=== PATIENT | female | born 1985 | race Native Hawaiian/Other Pacific Islander ===

== ENCOUNTER 2017-03-31 20:24 | Inpatient (IN) | payer BC, OTHER ==
[~2017-03-31] VITALS: Ht 167.6 cm; Wt 77.1 kg
[~2017-03-31 20:24] MED LIST: ESCI20TA PO; GABA800T PO; HYDR50CA PO; METH-406 PO
--- NOTE | 2017-03-31 22:40 | NUR ---
INTAKE ASSESSMENT PT ASSESSED IN INTAKE DEPT.PT IS A/O X 4.VITAL SIGNS ARE STABLE.B/P=122/78,T=97.6.P=102,R=18.O2 SAT=97%.NO S/S OF ACUTE DISTRESS NOTED.PT IS STABLE CONDITION TO PROCEED TO [facility].
[2017-03-31] MEDS ORDERED: LOPERAMIDE HCL 2 MG CAPSULE PO PRN ×2 (22:45)
[2017-03-31] MEDS ORDERED: CLONIDINE HCL 0.1 MG TABLET PO PRN (22:45)
[2017-03-31] MEDS ORDERED: MIRALAX 17 GM POWD.PACK PO PRN (22:45)
[2017-03-31] MEDS ORDERED: ONDANSETRON 4 MG/2 ML VIAL IM PRN (22:45)
[2017-03-31] MEDS ORDERED: DIAZEPAM 10 MG TABLET PO PRN ×2 (22:45)
[2017-03-31] MEDS ORDERED: ONDANSETRON ODT 4 MG TAB.RAPDIS SL PRN (22:45)
[2017-03-31] MEDS ORDERED: THIAMINE HCL 200 MG/2 ML VIAL IM ONE (22:45)
[2017-03-31] MEDS ORDERED: LORAZEPAM 2 MG/1 ML VIAL IM PRN (22:45)
[2017-03-31] MEDS ORDERED: MAGNESIUM HYDROXIDE 30 ML LIQUID UDC PO PRN (22:45)
[2017-03-31] MEDS ORDERED: DICYCLOMINE HCL 20 MG TABLET PO PRN (22:45)
[2017-03-31] MEDS ORDERED: diphenhydrAMINE 50 MG CAPSULE PO PRN (22:45)
[2017-03-31] MEDS ORDERED: DIAZEPAM 5 MG TABLET PO PRN (22:45)
[2017-03-31] MEDS ORDERED: ACETAMINOPHEN 325 MG TABLET PO PRN (22:45)
[2017-03-31 23:27] LABS: *URINE HCG, QUAL NEGATIVE (NEGATIVE)
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
[2017-03-31 23:32] LABS: *AMPHETAMINE, URINE NEGATIVE (NEGATIVE); *BARBITURATE, URINE NEGATIVE (NEGATIVE); *CANNABINOID, URINE NEGATIVE (NEGATIVE); *COCCAINE, URINE NEGATIVE (NEGATIVE); *OPIATE, URINE NEGATIVE (NEGATIVE); *PHENCYCLIDINE SCREEN,URINE NEGATIVE (NEGATIVE)
[2017-04-01] VITALS: BP 123/88
[2017-04-01] MEDS ORDERED: KETOROLAC TROMETHAMINE 30 MG INJ IM PRN (00:15)
[2017-04-01] MEDS ORDERED: diphenhydrAMINE 50 MG CAPSULE ONE (00:30)
[2017-04-01] MEDS ORDERED: KETOROLAC TROMETHAMINE 30 MG INJ ONE (00:30)
[2017-04-01] MEDS ORDERED: NICOTINE 14 MG/24HR PATCH TD ONE (00:30)
[2017-04-01] MEDS ORDERED: MAG HYDROX/AL HYDROX/SIMETH 30 ML LIQUID UDC ONE (00:31)
[2017-04-01] MEDS: MAG HYDROX/AL HYDROX/SIMETH 30 ML LIQUID UDC PO PRN ×2 (00:31→18:01)
[2017-04-01] MEDS: NICOTINE 14 MG/24HR PATCH TD SCH ×2 (00:32→08:10)
--- NOTE | 2017-04-01 00:35 | NUR ---
PRN MEDS PRN BENADRYL,MAALOX AND TORADOL INJECTION GIVEN ORDERED FOR C/O ITICHING/INSOMNIA,HEARTBURN AND LEFT HIP PAIN RESPECTIVELY.PAIN LEVEL IS 9/10.
--- NOTE | 2017-04-01 01:35 | NUR ---
PRN F/U Pt is peacefully sleeping in bed at this;breathing is even and non labored,no s/s of distress noted,unable to assess pain level at this time,will be monitored.
[2017-04-01 04:00] VITALS: BP 116/77
[2017-04-01] MEDS ORDERED: GABA-536 PO (05:09)
[2017-04-01] MEDS ORDERED: LORA-258 PO (05:11)
--- NOTE | 2017-04-01 06:46 | NUR ---
END OF SHIFT Pt slept 5 hrs last night,fluid intake was 850 mls,voided x 1.PRN meds Benadryl,Toradol injection and Maalox were given with good effect.Nicotine patch applied to right upper arm.Pt does not smoke,She vapes. All Safety measures in place. Call light kept within reach. Will continue to monitor.
--- NOTE | 2017-04-01 07:10 | NUR ---
Start of shift note; Received report from night nurse. Patient is AOX4. Patient is a 31 year old female admitted on 03/31/17 for ETOH/Benzo dependence. Patient is on a regular diet, full code status, NKA. Patient reported history of anxiety, depression, SI history, eating disorder, seizures d/t withdrawals. Patient appears very anxious and agitated, complaining of sweating, nausea/vomiting, nose bleed, muscle aches. Patient has redness on face and nose. Patient currently denies suicidal/homicidal ideation. Patient is on fall and seizure precaution. Bed in lowest position, call light within reach. Will continue to monitor patient.
--- NOTE | 2017-04-01 07:42 | NUR ---
PRN medication; Relaxation techniques reinforced. Non-pharmacological techniques noted to be ineffective. Patient still appears anxious, agitated, complaining of nausea and vomiting, hand tremors noted. Patient's current CIWA score is 13. PRN Valium 10mg PO given as per MD for CIWA of 13. Will closely monitor patient.
[2017-04-01 07:52] LABS: BASOPHILS # (AUTO) 0.1 K/uL (0.0-8.0); BASOPHILS % (AUTO) 1.1 % (0.0-2.0); EOSINOPHILS # (AUTO) 0.2 K/uL (0.0-0.7); EOSINOPHILS % (AUTO) 2.4 % (0.0-7.0); LYMPHOCYTES # (AUTO) 5.9 K/UL (0.8-4.8); LYMPHOCYTES % (AUTO) 62.2 % (20.5-51.5); MEAN CORPUSCULAR HEMOGLOBIN 29.7 UUG (27.0-31.0); MEAN CORPUSCULAR HGB CONC 33 g/dL (32.0-37.0); MEAN CORPUSCULAR VOLUME 89.2 FL (81.0-99.0); MONOCYTES # (AUTO) 0.6 K/UL (0.1-1.30); MONOCYTES % (AUTO) 6.3 % (0.0-11.0); NEUTROPHILS # (AUTO) 2.6 K/UL (1.8-8.9); PLATELET COUNT (AUTO) 277 K/UL (150-450); RED BLOOD CELL COUNT(AUTO) 4.71 MIL/UL (4.2-5.4); WHITE BLOOD COUNT (AUTO) 9.4 K/UL (4.0-11.2)
[2017-04-01 08:00] VITALS: BP 123/98
[2017-04-01] MEDS: MULTIVITAMINS,THERAPEUTIC TABLET PO SCH (08:10)
[2017-04-01] MEDS: THIAMINE HCL 100 MG TABLET PO SCH (08:10)
[2017-04-01] MEDS: FOLIC ACID 1 MG TABLET PO SCH (08:10)
--- NOTE | 2017-04-01 08:42 | NUR ---
Re-assessment; Patient is AOX4, patient stated improvement of nausea and no further emesis noted at this time, patient appears calm and comfortable at this time. Patient's current CIWA score is 8. Will continue to monitor patient.
[2017-04-01 08:57] LABS: BILIRUBIN,TOTAL 1.1 mg/dL (0.2-1.0); MAGNESIUM 1.9 mg/dL (1.8-2.4); POTASSIUM 3.7 mmol/L (3.5-5.1); TOTAL PROTEIN, SERUM 8.3 g/dL (6.4-8.2)
[2017-04-01] MEDS ORDERED: TUBERCULIN,PURIF.PROT.DERIV. 5 TU/0.1 ML TEST ID ONE (09:00)
--- NOTE | 2017-04-01 09:46 | NUR ---
MD communication; Patient stated that she wanted to leave AMA. Redirected patient and attempted patient to convince patient to comply with treatment plan. Dr. Cordon notified and made aware of patient's current condition. Patient currently denies suicidal/homicidal ideations. Patient to be evaluated by MD. Will closely monitor patient.
[2017-04-01] MEDS ORDERED: DIAZEPAM 10 MG TABLET PO PRN (10:00)
--- NOTE | 2017-04-01 10:10 | NUR ---
MD communication; MD on unit. Patient was seen and evaluated by Dr. Cordon. MD ordered one time dose of Valium 10mg for elevated CIWA and anxiety. Patient received PRN Valium at 0742 and was reported to MD. Clarified one time order with MD, per MD its okay to give one time dose of Valium at this time.
--- NOTE | 2017-04-01 10:15 | NUR ---
New order; MD ordered one time dose of Valium 10mg PO for elevated CIWA score and anxiety/agitation. Upon assessment patient's current CIWA score is 9 manifested by Anxiety, agitation, intermittent nausea, mild hand tremors, sweating. Order given as per ordered. Will continue to monitor patient for effectiveness of medication. Addendum: 04/01/17 at 1036 by MATA OBRIEN LVN MD also notified of patient's home medications and the need to reconcile home medications, psychiatrist was also notified.
[2017-04-01 10:39] LABS: THYROID STIMULATING HORMONE 4.018 mIU/mL (0.358-3.740)
--- NOTE | 2017-04-01 11:15 | NUR ---
Re-assessment; Patient is AOX4. Patient appears less anxious and less agitated, complaining of mild nausea and sweats, mild tremors noted with current CIWA score of 7. Medication was effective in reducing withdrawal symptoms. Will continue to monitor patient.
--- NOTE | 2017-04-01 11:18 | NUR ---
Med Reconciliation Pt requesting her medications be reconciled by Dr Bradford, Dr Bradford notified, gave ok for pt to continue: Paxil 20mg PO daily, gabapentin 1200mg PO TID for anxiety. Orders entered, unable to enter orders.
[2017-04-01] MEDS: ESCITALOPRAM OXALATE 10 MG TABLET PO SCH (11:29)
[2017-04-01 12:00] VITALS: BP 125/88
[2017-04-01] MEDS: HYDROXYZINE PAMOATE 25 MG CAPSULE PO PRN ×2 (12:04→22:05)
[2017-04-01] MEDS: METHOCARBAMOL 750 MG TABLET PO PRN ×2 (12:04→22:04)
--- NOTE | 2017-04-01 12:04 | NUR ---
PRN medication; Patient is complaining of muscle aches and anxiety m/b patient pacing back and forth in the hallway and facial grimacing, redirected as needed. Relaxation techniques ineffective. PRN Vistaril 50mg PO given for anxiety and PRN Robaxin 750mg PO given for muscle aches. Will continue to monitor patient.
[2017-04-01] MEDS ORDERED: GABAPENTIN 400 MG CAPSULE PO SCH (13:00)
[2017-04-01] MEDS: DIAZEPAM 10 MG TABLET PO SCH ×3 (13:00→21:00)
[2017-04-01] MEDS: FLUTICASONE PROP NASAL SPRAY 16 GM BOTTLE NS SCH ×2 (13:00→17:35)
--- NOTE | 2017-04-01 13:04 | NUR ---
Re-assessment; Patient stated improvement in muscle aches, patient appears less anxious. Medications were effective in reducing withdrawal symptoms.
--- NOTE | 2017-04-01 13:46 | NUR ---
Patient and MD communication; Patient refused to take Valium taper dose at this time, educated patient regarding the importance of compliance to treatment plan and medication regime. Dr. Cordon on unit. MD notified of patient's refusal to medication, MD to re-evaluate patient. Patient has small lip sore was also reported to MD, no new orders at this time.
[2017-04-01] MEDS: GABAPENTIN 400 MG CAPSULE PO SCH ×2 (14:08→21:13)
--- NOTE | 2017-04-01 15:21 | NUR ---
Therapist advised client of group times. Client will not be going because she is highly anxious and does not feel well.
[2017-04-01 16:00] VITALS: BP 138/82
[2017-04-01] MEDS: NICOTINE POLACRILEX 4 MG GUM-PK OF TEN BC PRN (16:03)
--- NOTE | 2017-04-01 18:08 | NUR ---
PRN medication and patient communication; Patient is complaining of heartburn, PRN Maalox 30ml PO given for heartburn. Patient also refused her 1700 Valium dose. Educated patient regarding the importance regarding importance of compliance to treatment plan and medication regime, verbalized understanding.
--- NOTE | 2017-04-01 18:36 | NUR ---
End of shift note; Patient is AOX4. Patient was not compliant with treatment plan, patient was educated regarding the importance of compliance to treatment plan and medication regime, verbalized understanding. Patient's last CIWA score was 5 at 1600. All safety measures secured. Met all needs.
--- NOTE | 2017-04-01 19:30 | NUR ---
START OF SHIFT Patient is a 31 year old female admitted on 03/31/17 for ETOH/Benzo dependence. Patient is on a regular diet, full code status, NKA. A/O X 4. PMH of anxiety, depression, Suicide attempts, eating disorder, seizures d/t withdrawals. Patient currently denies suicidal ideation. Patient is on fall and seizure precautions. All safety measures in place. Bed locked in lowest position,side rails up and padded x 2, call light within reach. Will continue to monitor. Addendum: 04/01/17 at 2032 by ZAID GORDON RN LAST CIWA SCORE WAS 5.
[2017-04-01 20:00] VITALS: BP 126/90
[2017-04-01] MEDS ORDERED: QUETIAPINE FUMARATE 25 MG TABLET PO SCH (21:00)
--- NOTE | 2017-04-01 21:30 | NUR ---
PT REFUSED TO TAKE VALIUM ORDERED.
[2017-04-01] MEDS: IBUPROFEN 400 MG TABLET PO PRN (22:04)
--- NOTE | 2017-04-01 22:05 | NUR ---
PRN MEDS- PRN VISTARIL,MOTRIN AND ROBAXIN GIVEN ORDERED FOR C/O ANXIETY,HEADACHE AND MYALGIA RESPECTIVELY.WILL MONITOR FOR EFFECTIVENESS.
--- NOTE | 2017-04-01 23:05 | NUR ---
PRN F/U PT VERBALIZES FEELING BETTER.ANXIETY AND PAIN RELIEVED
[2017-04-02] VITALS: BP 115/74
[2017-04-02] MEDS: IBUPROFEN 400 MG TABLET PO PRN (02:43)
--- NOTE | 2017-04-02 02:44 | NUR ---
PT C/O PAIN IN HER MOUTH DUE TO MOUTH SORE.PRN MOTRIN GIVEN ORDERED PER PT REQUEST.PAIN LEVEL IS 5/10.WILL MONITOR.
--- NOTE | 2017-04-02 03:45 | NUR ---
PRN F/U PRN EFFECTIVE,PT RESTING IN BED WITH EYES CLOSED,NO S/S OF DISTRESS NOTED.
[2017-04-02 04:00] VITALS: BP 126/80
--- NOTE | 2017-04-02 06:48 | NUR ---
END OF SHIFT Patient is a 31 year old female admitted on 03/31/17 for ETOH/Benzo dependence. Patient is on a regular diet, full code status, NKA. A/O X 4. PMH of anxiety, depression, Suicide attempts, eating disorder, seizures d/t withdrawals. Patient currently denies suicidal ideation. Patient is on fall and seizure precautions. PRN Vistaril,Motrin and Robaxin given and were effective.Pt slept 8 hrs;fluid intake was 2,937 mls,voide x 4,BM X 1. All safety measures in place. Bed locked in lowest position,side rails up and padded x 2, call light within reach. Will continue to monitor.
[2017-04-02 08:00] VITALS: BP 114/71
[2017-04-02 08:08] LABS: HEPATITIS B SURFACE AG Negative (Negative)
[2017-04-02] MEDS ORDERED: DIAZEPAM 10 MG TABLET PO SCH (09:00)
[2017-04-02] MEDS: FOLIC ACID 1 MG TABLET PO SCH (09:06)
[2017-04-02] MEDS: GABAPENTIN 400 MG CAPSULE PO SCH ×3 (09:06→21:03)
[2017-04-02] MEDS: ESCITALOPRAM OXALATE 10 MG TABLET PO SCH (09:06)
[2017-04-02] MEDS: HYDROXYZINE PAMOATE 25 MG CAPSULE PO PRN ×2 (09:07→15:43)
[2017-04-02] MEDS: MULTIVITAMINS,THERAPEUTIC TABLET PO SCH (09:07)
[2017-04-02] MEDS: METHOCARBAMOL 750 MG TABLET PO PRN ×2 (09:07→17:18)
--- NOTE | 2017-04-02 09:07 | NUR ---
PRN ROBAXIN AND VISTARIL Patient complained of body pain and sore on lower lip (5/10) and anxiety. PRN robaxin and vistaril given. Will monitor effectiveness of medications.
[2017-04-02] MEDS: THIAMINE HCL 100 MG TABLET PO SCH (09:08)
[2017-04-02] MEDS: FLUTICASONE PROP NASAL SPRAY 16 GM BOTTLE NS SCH ×2 (09:08→17:18)
[2017-04-02] MEDS: NICOTINE 14 MG/24HR PATCH TD SCH (09:08)
--- NOTE | 2017-04-02 10:00 | NUR ---
START OF SHIFT Received report from night nurse nurse. Patient is 31 year old female admitted for medically supervised withdrawal from alcohol and benzodiazepines. Patient is full code with NKA. On assessment this AM: CIWA: 2. Denies SOB, chest pain. vitals signs WNL. Reports mild anxiety and mild tremors. On valium taper this AM but refused scheduled valium, pt. wants to talk to the MD today and states she wants to go home. Patient was encouraged to attend group meetings today. Will continue to monitor patient. Will follow up with MD regarding patient's refusal to take her scheduled valium.
--- NOTE | 2017-04-02 10:05 | NUR ---
REASSESSMENT (PRN ROBAXIN AND VISTARIL) Patient reports vistaril was effective. Patient reports pain decreased to 4/10.
[2017-04-02 12:00] VITALS: BP 109/77
[2017-04-02] MEDS ORDERED: DIAZEPAM 5 MG TABLET PO PRN (13:45)
[2017-04-02] MEDS ORDERED: DIAZEPAM 10 MG TABLET PO PRN ×2 (13:45)
--- NOTE | 2017-04-02 14:00 | NUR ---
CIWA EVALUATION Patient's last CIWA was 2. No PRN valium given at this time.
[2017-04-02] MEDS: NICOTINE POLACRILEX 4 MG GUM-PK OF TEN BC PRN (14:16)
--- NOTE | 2017-04-02 14:16 | NUR ---
PRN NICOTINE GUM Patient requested for prn nicotine gum for craving. Will monitor effectiveness of med.
--- NOTE | 2017-04-02 15:16 | NUR ---
REASSESSMENT PRN NICOTINE GUM Patient reports med was effective
[2017-04-02] MEDS: LIDOCAINE VISCUS 2% 15 ML UDC MM SCH ×2 (15:32→21:03)
--- NOTE | 2017-04-02 15:43 | NUR ---
PRN VISTARIL Patient complained of anxiety, prn vistaril given. will monitor effectiveness of med.
[2017-04-02 16:00] VITALS: BP 121/85
--- NOTE | 2017-04-02 16:00 | NUR ---
CIWA EVALUATION Patient's last CIWA was 2. No PRN valium given at this time.
--- NOTE | 2017-04-02 16:43 | NUR ---
REASSESSMENT (PRN VISTARIL) Patient reports resolved anxiety.
[2017-04-02] MEDS: NYSTATIN SUSPENSION 5 ML LIQUID UDC PO SCH (17:18)
--- NOTE | 2017-04-02 17:18 | NUR ---
PRN ROBAXIN Patient reproted body aches 01/20, prn robaxin given, will continue to monitor effectiveness.
--- NOTE | 2017-04-02 18:18 | NUR ---
REASSESSMENT (PRN ROBAXIN) Patient reports pain decreased to 2/10.
--- NOTE | 2017-04-02 19:00 | NUR ---
END OF SHIFT Patient is 31 year old female admitted for medically supervised withdrawal from alcohol and benzodiazepines. Patient is full code with NKA. Most recent CIWA: 2. Patient reports prn vistaril and robaxin help with the anxiety and body aches. Patient has mouth sore on lower lip and reports she has sores on the side of her tongue, Md notified. Patient received nystatin and lidocaine swish and spit as ordered. Patient tolerating meals without n/v. dealer support technicianproduction shift supervisor will continue to monitor patient. dealer support technicianproduction shift supervisor will continue to monitor patient.
[2017-04-02 20:00] VITALS: BP 116/82
--- NOTE | 2017-04-02 20:00 | NUR ---
Start of Shift Patient is a 31 year old, female, admitted for ETOH and Benzo dependence. With MHx of Anxiety, Depression, suicide attempts, eating disorder, seizures d/t withdrawals. Patient is Full Code, on Regular Diet, and with NKA. Patient currently denies suicidal ideation nor homicidal ideation. ON PRN Valium. Pt is AAOx4, no SOB nor anxiety noted at this time. Pt is ambulatory with steady gait and intact skin. Fall, universal, seizures and safety prec in place. Call light within reach. Latest CIWA=3. Will continue to monitor.
[2017-04-02] MEDS ORDERED: QUETIAPINE FUMARATE 25 MG TABLET PO SCH (21:00)
[2017-04-03] VITALS: BP 113/75
[2017-04-03] MEDS: HYDROXYZINE PAMOATE 25 MG CAPSULE PO PRN ×3 (00:43→14:18)
[2017-04-03] MEDS: NYSTATIN SUSPENSION 5 ML LIQUID UDC PO SCH ×3 (00:43→12:20)
--- NOTE | 2017-04-03 00:44 | NUR ---
RN note PRN Vistaril Pt c/o anxiety. Administered Vistaril 50 mg PO as ordered. Will reassess.
--- NOTE | 2017-04-03 01:45 | NUR ---
RN note reassess Pt asleep on bed, no SOB nor facial grimacing noted.
[2017-04-03 04:00] VITALS: BP 118/76
[2017-04-03] MEDS: LIDOCAINE VISCUS 2% 15 ML UDC MM SCH ×2 (06:31→14:00)
--- NOTE | 2017-04-03 06:34 | NUR ---
RN note PRN Vistaril Pt c/o anxiety. Administered Vistaril 50 mg PO as ordered. Will reassess.
--- NOTE | 2017-04-03 07:15 | NUR ---
End of Shift Patient is a 31 year old, female, admitted for ETOH and Benzo dependence. With MHx of Anxiety, Depression, suicide attempts, eating disorder, seizures d/t withdrawals. Patient is Full Code, on Regular Diet, and with NKA. Patient currently denies suicidal ideation nor homicidal ideation. ON PRN Valium. Pt is AAOx4, no SOB nor anxiety noted at this time. Pt is ambulatory with steady gait and intact skin. Fall, universal, seizures and safety prec in place. Call light within reach. Latest CIWA=2, slept for 7 hours. Endorsed to AM shift nurse for continuity of care.
--- NOTE | 2017-04-03 07:29 | NUR ---
RN note reassess Pt asleep on bed, no SOB nor facial grimacing noted.
[2017-04-03 08:00] VITALS: BP 113/77
--- NOTE | 2017-04-03 08:00 | NUR ---
START OF SHIFT Pt 31 y/o female admitted for etoh/ benzo dependence. Pt received in room awake in bed. Pt alert and oriented to name, place, and time. Perrla. Skin warm and dry to touch. Respirations even and unlabored. It was reported that pt slept for 7 hours last night. Bed on lowest position with side rails x2 up for safety. Call light within reach. No distress noted at this time.
[2017-04-03] MEDS ORDERED: DIAZEPAM 5 MG TABLET PO SCH (09:00)
[2017-04-03] MEDS: METHOCARBAMOL 750 MG TABLET PO PRN (09:21)
[2017-04-03] MEDS: NICOTINE 14 MG/24HR PATCH TD SCH (09:22)
[2017-04-03] MEDS: GABAPENTIN 400 MG CAPSULE PO SCH ×2 (09:22→14:17)
[2017-04-03] MEDS: ESCITALOPRAM OXALATE 10 MG TABLET PO SCH (09:22)
[2017-04-03] MEDS: MULTIVITAMINS,THERAPEUTIC TABLET PO SCH (09:22)
[2017-04-03] MEDS: FOLIC ACID 1 MG TABLET PO SCH (09:22)
[2017-04-03] MEDS: THIAMINE HCL 100 MG TABLET PO SCH (09:22)
[2017-04-03] MEDS: FLUTICASONE PROP NASAL SPRAY 16 GM BOTTLE NS SCH (09:23)
[2017-04-03 12:00] VITALS: BP 122/88
[2017-04-03 14:25] LABS: *AMPHETAMINE, URINE NEGATIVE (NEGATIVE); *BARBITURATE, URINE NEGATIVE (NEGATIVE); *CANNABINOID, URINE NEGATIVE (NEGATIVE); *COCCAINE, URINE NEGATIVE (NEGATIVE); *OPIATE, URINE NEGATIVE (NEGATIVE); *PHENCYCLIDINE SCREEN,URINE NEGATIVE (NEGATIVE)
--- NOTE | 2017-04-03 14:25 | NUR ---
PRN Pt states feels anxious. Vistaril po prn per MD order given and tolerated well.
--- NOTE | 2017-04-03 14:52 | NUR ---
AMA Pt 31 y/o female AMA. Pt spoke with multiple staff and pt still decided to AMA. Dr. Cordon aware. Pt alert and oriented to name, place, and time. Respirations even and unlabored. Pt denies any SI/ HI. Pt home medications, belongings, and resource paper were packed in bag. VS wnl. No distress noted.
[2017-04-04] MEDS ORDERED: DIAZEPAM 5 MG TABLET PO SCH (09:00)
[2017-04-05] MEDS ORDERED: DIAZEPAM 5 MG TABLET PO SCH (09:00)
== END 2017-04-03 14:52 | disposition left against medical advice (07) | DRG 894 ==
LOC: SRC 21:59
PROVIDERS: ADMIT Internal Medicine; ATTEND Internal Medicine
PROC: HZ2ZZZZ Detoxification Services for Substance Abuse Treatment (ICD-10-PCS; principal; 2017-03-31)
PROC: HZ31ZZZ Individual Counseling for Substance Abuse Treatment, Behavioral (ICD-10-PCS; 2017-04-01)
DX: F10.230 Alcohol dependence with withdrawal, uncomplicated (principal); F13.239 Sedative, hypnotic or anxiolytic dependence with withdrawal, unspecified; Y90.9 Presence of alcohol in blood, level not specified; Z59.0 Homelessness; F41.9 Anxiety disorder, unspecified; E07.81 Sick-euthyroid syndrome; K70.10 Alcoholic hepatitis without ascites; J30.9 Allergic rhinitis, unspecified; F32.9 Major depressive disorder, single episode, unspecified
CPT/HCPCS: 36415; 80307; 83690; 83735; 84443; 84703; 85025; 86580; 86592; 86705; 86803; 87340; 87806; 93005; A4663; G0480; J1885; J3411; J3535; Q0162; Q0163

== ENCOUNTER 2018-10-30 18:43 | Inpatient (IN) | payer OTHER ==
[~2018-10-30] VITALS: Ht 167.6 cm; Wt 65.3 kg
[~2018-10-30 18:43] MED LIST changes: +GABA-536 PO; +LORA-258 PO
--- NOTE | 2018-10-30 23:45 | NUR ---
Pre-Admission Met with a 32 year old female in the intake office. She presents to [facility] for medically supervised withdrawal from ETOH (Vodka/Wine) and prescription Benzodiazepines (Ativan). She is intoxicated at this time. States, I drank a bottle of Vodka today and my last drink was about an hour ago at 11". VSS BP120/79, HR 89, RR 16, T 98.2, and O2 Sat 98% RA. She is nodding off and having a difficult time answering the questions. Pt is aware and agrees the the terms of admission. Pt is a candidate for treatment. Intake to be completed and will complete full assessment on the unit.
[2018-10-31] MEDS ORDERED: diphenhydrAMINE 50 MG CAPSULE PO PRN (00:15)
[2018-10-31] MEDS ORDERED: ONDANSETRON 4 MG/2 ML VIAL IM PRN (00:15)
[2018-10-31] MEDS ORDERED: MAGNESIUM HYDROXIDE 30 ML LIQUID UDC PO PRN (00:15)
[2018-10-31] MEDS ORDERED: CLONIDINE HCL 0.1 MG TABLET PO PRN (00:15)
[2018-10-31] MEDS ORDERED: SRC ALCOHOL WITHDRAWAL ADMITTING PROTOCOL XX PRN (00:15)
[2018-10-31] MEDS ORDERED: LORAZEPAM 2 MG/1 ML VIAL IM PRN (00:15)
[2018-10-31] MEDS ORDERED: THIAMINE HCL 200 MG/2 ML VIAL IM ONE (00:15)
[2018-10-31] MEDS ORDERED: MAG HYDROX/AL HYDROX/SIMETH 30 ML LIQUID UDC PO PRN (00:15)
[2018-10-31] MEDS ORDERED: MIRALAX 17 GM POWD.PACK PO PRN (00:15)
[2018-10-31] MEDS ORDERED: LORAZEPAM 1 MG TABLET PO PRN (00:15)
[2018-10-31] MEDS ORDERED: LOPERAMIDE HCL 2 MG CAPSULE PO PRN ×2 (00:15)
[2018-10-31] MEDS ORDERED: ONDANSETRON ODT 4 MG TAB.RAPDIS SL PRN (00:15)
[2018-10-31] MEDS ORDERED: SRC BENZO WITHDRAWAL ADMITTING PROTOCOL XX PRN (00:15)
[2018-10-31] MEDS ORDERED: ACETAMINOPHEN 325 MG TABLET PO PRN (00:15)
[2018-10-31 00:44] LABS: BASOPHILS % (AUTO) 0.3 % (0.0-2.0); EOSINOPHILS % (AUTO) 1.1 % (0.0-7.0); HEMATOCRIT 39.8 % (31.2-41.9); HEMOGLOBIN 13.9 g/dL (10.9-14.3); LYMPHOCYTES # (AUTO) 2.1 K/uL (20.0-40.0); LYMPHOCYTES % (AUTO) 44.8 % (20.5-51.5); MEAN CORPUSCULAR HEMOGLOBIN 32.7 uug (24.7-32.8); MEAN CORPUSCULAR HGB CONC 35 g/dL (32.3-35.6); MEAN CORPUSCULAR VOLUME 93.5 fL (75.5-95.3); MONOCYTES # (AUTO) 0.3 K/uL (2.0-10.0); MONOCYTES % (AUTO) 6.4 % (0.0-11.0); NEUTROPHILS # (AUTO) 2.2 K/uL (1.8-8.9); NEUTROPHILS % (AUTO) 47.4 % (38.5-71.5); PLATELET COUNT (AUTO) 310 K/uL (179-408); RED BLOOD CELL COUNT(AUTO) 4.25 MIL/uL (3.63-4.92); WHITE BLOOD COUNT (AUTO) 4.6 K/uL (3.8-11.8)
[2018-10-31 01:02] LABS: BILIRUBIN,TOTAL 0.9 mg/dL (0.2-1.0); CREATININE 0.9 mg/dL (0.6-1.3); MAGNESIUM 2.1 mg/dL (1.8-2.4); POTASSIUM 3.7 mmol/L (3.5-5.1); TOTAL PROTEIN, SERUM 8.6 g/dL (6.4-8.2)
[2018-10-31 01:13] LABS: THYROID STIMULATING HORMONE 2.547 mIU/mL (0.358-3.740)
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
[2018-10-31 03:27] LABS: *AMPHETAMINE, URINE NEGATIVE (NEGATIVE); *BARBITURATE, URINE NEGATIVE (NEGATIVE); *CANNABINOID, URINE NEGATIVE (NEGATIVE); *COCCAINE, URINE NEGATIVE (NEGATIVE); *OPIATE, URINE NEGATIVE (NEGATIVE); *PHENCYCLIDINE SCREEN,URINE NEGATIVE (NEGATIVE)
[2018-10-31 03:32] LABS: *URINE HCG, QUAL NEGATIVE (NEGATIVE)
[2018-10-31 04:00] VITALS: BP 109/73
[2018-10-31] MEDS ORDERED: SERT100T PO (05:04)
[2018-10-31] MEDS ORDERED: LEVO25TA9 PO (05:06)
--- NOTE | 2018-10-31 06:44 | NUR ---
End of Shift Endorsing 32 year old female patient admitted to [facility] 10/31/18 for medically supervised withdrawal from ETOH and Benzodiazepines. Pt not currently on a taper, but has PRN Medications available for s/s of withdrawal. Last CIWA 4 @0400. Pt did not receive any PRN medications on mine shifter. Pt resting in bed with eyes closed. Respirations are even and unlabored. Bed low, padded side rails up x 2, and call woodruff in reach. PO intake 500 ml, voided x 1, BM x 0, and slept 4 hours.
--- NOTE | 2018-10-31 07:30 | NUR ---
Start of shift Pt is here for medically supervised withdrawal of ETOH and benzos. Pt on PRN medications for symptoms. At 0400 last CIWA 4. Patient c/o anxiety, nausea, fatigue, fine tremors, difficulty concentrating, anhedonia, flat affect and depressed mood. She is disheveled and malodorous. Room is cluttered with wrappers, empty water bottles, clothes and used linens. Drinks and food spilled on floor, in her bed and on his tray. Encouraged Pt to participate in group therapy sessions today to identify positive coping skills to maintain sobriety. All safety measures in place, bed locked/low position. Pt Full Code and NKA. Will continue to monitor for withdrawal symptoms.
[2018-10-31 08:02] VITALS: BP 122/83
[2018-10-31] MEDS: LORAZEPAM 1 MG TABLET PO PRN ×2 (08:44→12:02)
[2018-10-31] MEDS: IBUPROFEN 600 MG TABLET PO PRN (08:44)
--- NOTE | 2018-10-31 08:47 | NUR ---
PRN Ativan 1 mg PO for CIWA 9. PRN Clonidine 0.1 mg PO for anxiety PRN Ibuprofen 600 mg PO for headache #5/10
--- NOTE | 2018-10-31 08:48 | NUR ---
Verify medical history- Pt reports she has an IUD and does not take control pills. Pt reports she take levothyroxine 50 mcg daily.
--- NOTE | 2018-10-31 09:50 | NUR ---
Reassess Ativan- CIWA remains 9, pt reports she feels less anxious. Reassess Clonidine- Pt reports anxiety improved slightly. She ambulating around unit and to patio. Reassess Ibuprofen- Pt reports head ache, back and body pain now #1
[2018-10-31] MEDS: SERTRALINE HCL 100 MG TABLET PO SCH (11:57)
[2018-10-31] MEDS: GABAPENTIN 400 MG CAPSULE PO SCH ×2 (11:57→16:44)
[2018-10-31 12:00] VITALS: BP 112/73
--- NOTE | 2018-10-31 12:03 | NUR ---
PRN Ativan 1 mg PO for CIWA 14. Pt c/o sweats/chills, nausea, anxiety and has bilateral hand tremors.
--- NOTE | 2018-10-31 12:06 | NUR ---
RT prompted pt to attend rec therapy groups.
[2018-10-31] MEDS ORDERED: 4 DAY TAPER VALIUM-SERENITY PROTOCOL PO PRN (13:00)
[2018-10-31] MEDS ORDERED: DIAZEPAM 5 MG TABLET PO PRN (13:00)
[2018-10-31] MEDS ORDERED: DIAZEPAM 10 MG TABLET PO PRN ×2 (13:00)
[2018-10-31] MEDS ORDERED: GABAPENTIN PO SCH (13:00)
--- NOTE | 2018-10-31 13:00 | NUR ---
Reassess Ativan- CIWA remains 14. Pt started on 3 day Ativan taper to manage withdrawal symptoms.
[2018-10-31] MEDS ORDERED: 3 DAY TAPER OF VALIUM-SERENITY PROTOCOL PO PRN (13:15)
[2018-10-31] MEDS: METHOCARBAMOL 750 MG TABLET PO SCH ×2 (13:46→16:44)
[2018-10-31] MEDS: DIAZEPAM 5 MG TABLET PO SCH ×3 (13:47→21:10)
[2018-10-31 16:00] VITALS: BP 115/71
--- NOTE | 2018-10-31 18:51 | NUR ---
End of shift Pt is here for medically supervised withdrawal of ETOH and benzos. Pt started on 3 day Valium taper. At 1600 last CIWA 14. PRN given today; Ativan, Clonidine, and Ibuprofen. Patient c/o anxiety, sweats/chills, nausea, fatigue, fine tremors, difficulty concentrating,. She has anhedonia, flat affect, depressed mood and labile at times. She is disheveled and malodorous. PO fluids 1710 ml, voids x 4, BM x1. Encouraged Pt to participate in group therapy sessions today to identify positive coping skills to maintain sobriety. Pt Full Code and NKA. All safety measures in place, bed locked/low position. Pt Full Code and NKA. Will continue to monitor for withdrawal symptoms.
--- NOTE | 2018-10-31 19:30 | NUR ---
START OF SHIFT Received patient awake, alert, and oriented x4. Patient is a 32 year old female admitted for medically supervised withdrawal from ETOH and benzos with secondary diagnoses of anxiety, depression, hypothyroidism, eating disorder, restless legs and a history of suicide attempts. Per endorsement, patient is on her first day of a 3 day Valium taper. Patient was given PRN meds Ativan, Clonidine, and Motrin during the day and has a positive history of seizures related to ETOH withdrawals. Upon assessment, patient was seen sitting up in bed watching TV. She reported having diaphoresis, anxiety, and back pain at a level of 6 out of 10. PRNs to be given with night meds. Last CIWA score is 14. Call light functional and within reach. Will continue to monitor.
[2018-10-31 20:00] VITALS: BP 104/53
[2018-10-31] MEDS: NICOTINE 21 MG/24HR PATCH TD SCH (21:10)
[2018-10-31] MEDS: HYDROXYZINE PAMOATE 25 MG CAPSULE PO PRN (21:11)
--- NOTE | 2018-10-31 21:11 | NUR ---
PRN VISTARIL ADMINISTRATION Patient is noted with anxiety and restlessness. PRN Vistaril 50 mg given per MD orders and patient request. Will continue to monitor and reassess for effectiveness.
--- NOTE | 2018-10-31 22:11 | NUR ---
PRN VISTARIL REASSESSMENT Patient reports having less anxiety and does not report any further negative symptoms. PRN Vistaril is effective. Will continue to monitor.
[2018-11-01] VITALS: BP 124/77
[2018-11-01 04:00] VITALS: BP 123/86
--- NOTE | 2018-11-01 04:00 | NUR ---
VITAL SIGNS REFUSED Patient is noted lying in bed with eyes closed and even, unlabored respirations. Vital sign assessment refused at this time. Bed is in a low position with wheels locked. HOB is flat and bilateral side rails raised. Will continue to monitor.
[2018-11-01] MEDS: LEVOTHYROXINE SODIUM 25 MCG TABLET PO SCH (06:46)
--- NOTE | 2018-11-01 07:14 | NUR ---
END OF SHIFT Patient is noted awake, alert, and oriented x4 lying in bed with HOB up. Patient is a 32 year old female admitted for medically supervised withdrawal from ETOH and benzos with secondary diagnoses of anxiety, depression, hypothyroidism, eating disorder, restless legs and a history of suicide attempts. During the shift, the patient was noted with anxiety, tremors, restlessness, and irritability. PRN Vistaril was given for anxiety and was effective. Patient requests to speak with MD regarding liver function tests, cholesterol and heart rhythm. Endorsed to charge nurse. Last CIWA score is 11 taken at 0000. Patient slept for about 7 hours. HOB and bilateral side rails raised for safety. Call light is functional and within reach. Seizure and fall precautions maintained. Endorsed to oncoming AM nurse.
--- NOTE | 2018-11-01 07:39 | NUR ---
START OF SHIFT Received report from night nurse, 32 year female admitted for ETOH/Benzo Withdrawal. Patient continues on 3 day Valium taper tolerating well. Per endorsement patient received PRN Zofran,Trazodone, slept for 7 hours, last . Received patient alert awake oriented x4, flat facial expression, anxious, agitated, restlessness, bilateral hand tremors, anhedonia. Patient is due for schedule medications. Educated patient on current plan of the day and medications regimen. Patient verbalized understanding. Addendum: 11/01/18 at 1325 by STEVEN SALGADO LVN CONTINUE-All safety measures in place. Will cont to monitor.
[2018-11-01 08:00] VITALS: BP 127/79
[2018-11-01] MEDS: SERTRALINE HCL 100 MG TABLET PO SCH (08:19)
[2018-11-01] MEDS: FOLIC ACID 1 MG TABLET PO SCH (08:19)
[2018-11-01] MEDS: MULTIVITAMINS,THERAPEUTIC TABLET PO SCH (08:19)
[2018-11-01] MEDS: THIAMINE HCL 100 MG TABLET PO SCH (08:19)
[2018-11-01] MEDS: METHOCARBAMOL 750 MG TABLET PO SCH ×2 (08:19→16:53)
[2018-11-01] MEDS: GABAPENTIN 400 MG CAPSULE PO SCH ×3 (08:20→16:53)
[2018-11-01] MEDS: NICOTINE 21 MG/24HR PATCH TD SCH (08:20)
[2018-11-01] MEDS ORDERED: TUBERCULIN,PURIF.PROT.DERIV. 5 TU/0.1 ML TEST ID ONE (09:00)
[2018-11-01] MEDS ORDERED: DIAZEPAM 5 MG TABLET PO SCH ×2 (09:00)
--- NOTE | 2018-11-01 10:01 | NUR ---
Therapist prompted client to attend daily group therapy sessions.
[2018-11-01 12:00] VITALS: BP 115/82
[2018-11-01] MEDS ORDERED: SERT100T PO (14:37)
[2018-11-01] MEDS ORDERED: HYDR-3895 PO (14:37)
[2018-11-01] MEDS ORDERED: GABA800T PO (14:37)
[2018-11-01] MEDS ORDERED: CLON0.1T14 PO (14:37)
[2018-11-01] MEDS ORDERED: METH-406 PO (14:37)
[2018-11-01] MEDS ORDERED: LEVO25TA9 PO (14:37)
[2018-11-01 16:00] VITALS: BP 129/84
--- NOTE | 2018-11-01 19:09 | NUR ---
END OF SHIFT Gave report to night nurse, 32 year old female admitted for ETOH/Benzo withdrawal. Patient was placed on 3 day Valium taper and patient refused her schedule dose of Valium, Patient states " I am fine i am not feeling any symptoms". MD has been notified. Patient presented with anxiety, agitation, fatigue. During shift patient did not receive any PRN medications. Patient attended groups activities. Encourage PO fluids. Last CIWA score was 6 at 1600. Patient scheduled to discharge in AM. Vital signs WNL. Patient denies any SI/HI. All safety measures in place. Endorse patient to night nurse in stable condition.
--- NOTE | 2018-11-01 19:30 | NUR ---
START OF SHIFT Received patient awake, alert, oriented x4 sitting up in bed watching TV. Patient is a 32 year old female admitted for medically supervised withdrawal from ETOH and benzos with secondary diagnoses of anxiety, depression, hypothyroidism, eating disorder, restless legs and a history of suicide attempts. Per endorsement, patient refused her morning and afternoon taper medications stating that she was not experiencing any withdrawal symptoms. Patient also did not receive any PRN meds during the AM shift and is scheduled to discharge tomorrow morning. Upon assessment, patient denies negative symptoms and is seen relaxing in her room. Last CIWA score is 6. Call light within reach. Bed in a low locked position. All safety measures in place. Will continue to monitor.
[2018-11-01 20:08] VITALS: BP 124/88
[2018-11-01] MEDS: HYDROXYZINE PAMOATE 25 MG CAPSULE PO PRN (21:25)
--- NOTE | 2018-11-01 21:25 | NUR ---
PRN VISTARIL AND BENADRYL ADMINISTRATION Patient reports having anxiety and difficulty sleeping. PRN meds Vistaril 50 mg and Benadryl 50 mg given per MD orders and pt request. Will monitor for effectiveness.
[2018-11-01 21:42] LABS: HDL CHOLESTEROL 103 mg/dL (40-60); TRIGLYCERIDES 93 MG/DL (30-150)
--- NOTE | 2018-11-01 22:25 | NUR ---
PRN VISTARIL AND BENADRYL REASSESSMENT Patient is noted lying in bed with eyes closed and even, unlabored respirations. PRN meds Vistaril and Benadryl noted to be effective. HOB and bilateral side rails raised. Will continue to monitor.
--- NOTE | 2018-11-02 00:06 | NUR ---
VITAL SIGNS REFUSED Patient is noted lying in bed with eyes closed and even, unlabored respirations. Vital sign assessment refused. HOB flat and bilateral side rails raised. Call light within reach. Will continue to monitor.
[2018-11-02] MEDS: IBUPROFEN 600 MG TABLET PO PRN (04:54)
--- NOTE | 2018-11-02 04:54 | NUR ---
PRN IBUPROFEN ADMINISTRATION Patient reports having a headache of a 4/10 pain. PRN Motrin 600 mg given per MD orders and patient request. Will continue to monitor for effectiveness.
--- NOTE | 2018-11-02 05:54 | NUR ---
PRN IBUPROFEN REASSESSMENT Patient reports almost complete relief from headache pain at a 0/10. PRN Motrin noted to be effective. Will continue to monitor.
[2018-11-02] MEDS: LEVOTHYROXINE SODIUM 25 MCG TABLET PO SCH (06:07)
--- NOTE | 2018-11-02 07:08 | NUR ---
END OF SHIFT Patient is noted sitting up in bed awake, alert, and oriented x4 watching TV. Patient reported having anxiety, restlessness, difficulty sleeping, and a headache and was given Vistaril, Benadryl, and Ibuprofen. Patient is scheduled to be discharged in the morning. Blood draw for requested labs were taken during the previous night before she fell asleep. Patient slept for about 7.5 hours during the night. Last CIWA score was 6 taken at 2000. HOB and bilateral side rails raised. Call light within reach. All safety measures in place. Endorsed to oncoming AM nurse.
--- NOTE | 2018-11-02 07:54 | NUR ---
START OF SHIFT Received report from night nurse, 32 year female admitted for ETOH/Benzo Withdrawal. patient refused her Valium taper it was discontinued yesterday. Per endorsement patient received PRN Benadryl,Motrin,Vistaril, slept for 7 hours, last CIWA-6. Received patient alert awake oriented x4, patient scheduled for discharge today. Patient encouraged to socialize with others and verbalize feeling. Patient verbalized understanding. All safety measures in place. Will cont to monitor.
[2018-11-02 08:00] VITALS: BP 135/88
[2018-11-02] MEDS: MULTIVITAMINS,THERAPEUTIC TABLET PO SCH (08:30)
[2018-11-02] MEDS: THIAMINE HCL 100 MG TABLET PO SCH (08:30)
[2018-11-02] MEDS: GABAPENTIN 400 MG CAPSULE PO SCH (08:30)
[2018-11-02] MEDS: FOLIC ACID 1 MG TABLET PO SCH (08:30)
[2018-11-02] MEDS: METHOCARBAMOL 750 MG TABLET PO SCH (08:30)
[2018-11-02] MEDS: NICOTINE 21 MG/24HR PATCH TD SCH (08:31)
[2018-11-02] MEDS: SERTRALINE HCL 100 MG TABLET PO SCH (08:47)
[2018-11-02] MEDS ORDERED: DIAZEPAM 5 MG TABLET PO SCH (09:00)
--- NOTE | 2018-11-02 09:43 | NUR ---
DISCHARGE NOTE Patient has been discharge from [facility] in stable condition. Vital signs WNL. Patient denies any SI/HI. All paper work has been completed signed and dated. Patient left with all of her belongings, prescriptions. Patient has been discharge from [facility] on 11/02/18 at 0943. has been notified.
[2018-11-02 12:06] LABS: HEPATITIS B SURFACE AG Negative (Negative)
== END 2018-11-02 09:43 | disposition home or self-care (01) | DRG 895 ==
LOC: SRC 23:39
PROVIDERS: ADMIT Family Medicine Addiction Medicine; ATTEND Family Medicine Addiction Medicine
PROC: HZ2ZZZZ Detoxification Services for Substance Abuse Treatment (ICD-10-PCS; principal; 2018-10-30)
PROC: HZ59ZZZ Individual Psychotherapy for Substance Abuse Treatment, Supportive (ICD-10-PCS; 2018-10-31)
PROC: HZ31ZZZ Individual Counseling for Substance Abuse Treatment, Behavioral (ICD-10-PCS; 2018-11-01)
DX: F10.231 Alcohol dependence with withdrawal delirium (principal); G40.509 Epileptic seizures related to external causes, not intractable, without status epilepticus; F33.2 Major depressive disorder, recurrent severe without psychotic features; F13.230 Sedative, hypnotic or anxiolytic dependence with withdrawal, uncomplicated; Y90.9 Presence of alcohol in blood, level not specified; F17.210 Nicotine dependence, cigarettes, uncomplicated; F41.1 Generalized anxiety disorder; Z91.5 Personal history of self-harm; E03.9 Hypothyroidism, unspecified; F50.9 Eating disorder, unspecified; Z79.899 Other long term (current) drug therapy; Z91.410 Personal history of adult physical and sexual abuse
CPT/HCPCS: 36415; 80307; 80346; 83735; 84443; 84478; 84703; 85025; 86592; 86705; 86803; 87340; 87806; 93005; G0480; Q0163